=== PATIENT | female | born 1945 | race Two or more races ===

== ENCOUNTER 2023-03-09 01:54 | Inpatient (IN) | payer OTHER ==
[2023-03-09] VITALS (7 sets, daily range): BP systolic 103–152; BP diastolic 56–98; PULSE 56–100; RESP 12–18; TEMP 98.1–98.6; O2SAT 95–97
[~2023-03-09] VITALS: Ht 162.6 cm; Wt 51.6 kg
[2023-03-09] MEDS ORDERED: MORPHINE SULFATE INJ 2 MG/ml SYRG IV PRN (04:45)
[2023-03-09] MEDS ORDERED: SODIUM CHLORIDE 0.9% 1,000 ML IV ONE (04:45)
[2023-03-09] MEDS ORDERED: ACETAMINOPHEN 325 MG TAB PO PRN (04:45)
[2023-03-09] MEDS ORDERED: NITROGLYCERIN 0.4 MG SL TAB SL PRN (04:45)
[2023-03-09] MEDS ORDERED: ONDANSETRON HCL 4 MG/2 ML VIAL IV PRN (04:45)
[2023-03-09] MEDS ORDERED: ATOR-47 PO (05:24)
[2023-03-09] MEDS ORDERED: HYDR12.55 PO (05:24)
[2023-03-09] MEDS ORDERED: LEVO150T10 PO (05:24)
[2023-03-09] MEDS ORDERED: AMLO1TAB23 PO (05:24)
[2023-03-09 08:10] LABS: Basophils # (auto) 0 10 ^3/uL (0-0.2); Basophils % (auto) 0.8 % (0.0-2.0); Eosinophils # (auto) 0.2 10 ^3/uL (0-0.8); Eosinophils % (auto) 3.2 % (0.0-7.0); Hematocrit 36.9 % (36.0-46.0); Hemoglobin 12.8 g/dL (12.2-16.2); Lymphocytes # (auto) 1.6 10 ^3/uL (0.4-5.4); Lymphocytes % (auto) 26.1 % (10.0-50.0); Mean Corpuscular Hemoglobin 31.4 pg (28.0-32.0); Mean Corpuscular Hgb Conc. 34.6 g/dL (32.0-36.0); Mean Corpuscular Volume 90.8 fL (80.0-100.0); Monocytes # (auto) 0.4 10 ^3/uL (0-1.3); Monocytes % (auto) 6.7 % (0.0-12.0); Neutrophils # (auto) 3.8 10 ^3/uL (1.6-8.6); Neutrophils % (auto) 63.2 % (37.0-80.0); Nucleated Red Blood Cells % 0.1 %; Red Blood Cells 4.06 10^6/uL (4.0-5.20); Red Cell Distribution Width 13.9 % (11.8-14.3)
[2023-03-09] MEDS: ASPirin 81 mg TAB PO SCH (09:09)
[2023-03-09 09:20] LABS: BUN/Creatinine Ratio 21.1 (10.0-20.0); Calcium 8.8 mg/dL (8.5-10.1); Potassium 3.3 mmol/L (3.5-5.1)
[2023-03-09] MEDS ORDERED: amLODIPine BESYLATE 5 MG TAB PO ONE (13:30)
[2023-03-09 14:04] LABS: Cholesterol 187 mg/dL (< 200); Triglycerides 167 mg/dL (< 150)
[2023-03-09 14:09] LABS: HDL Cholesterol 64 mg/dL (40-59); LDL Cholesterol 98 mg/dL (< 100)
[2023-03-09] MEDS ORDERED: LEVOTHYROXINE SODIUM 100 MCG/5 ML INJ IV ONE (17:45)
[2023-03-09] MEDS ORDERED: POTASSIUM CHL 20 Meq TABLET PO ONE (17:45)
[2023-03-09] MEDS: ATORVASTATIN 20 MG TAB PO SCH (21:54)
[2023-03-10 05:00] VITALS: BP 116/59; PULSE 59; RESP 17; TEMP 97.4; O2SAT 91
[2023-03-10 06:55] LABS: BUN/Creatinine Ratio 18.3 (10.0-20.0); Calcium 8.5 mg/dL (8.5-10.1); Potassium 3.5 mmol/L (3.5-5.1)
[2023-03-10 08:00] VITALS: BP 122/65; PULSE 55; PULSE 66; RESP 18; TEMP 98.2; O2SAT 97
[2023-03-10 09:03] LABS: Free T4 (Free Thyroxine) 0.17 ng/dL (0.89-1.76)
[2023-03-10 09:04] LABS: Free T3 0.76 pg/mL (2.3-4.2)
[2023-03-10] MEDS: ASPirin 81 mg TAB PO SCH (09:37)
[2023-03-10] MEDS: amLODIPine BESYLATE 5 MG TAB PO SCH (09:38)
[2023-03-10] MEDS: LEVOTHYROXINE SODIUM 100 MCG/5 ML INJ IV SCH (09:38)
[2023-03-10 13:00] VITALS: BP 135/52; PULSE 65; RESP 18; TEMP 98; O2SAT 95
[2023-03-10 17:00] VITALS: BP 131/66; PULSE 67; RESP 17; TEMP 97.9; O2SAT 98
[2023-03-10 20:00] VITALS: BP 122/65; PULSE 66; PULSE 71; RESP 18; TEMP 98.2; O2SAT 97
[2023-03-10] MEDS: ATORVASTATIN 20 MG TAB PO SCH (21:12)
[2023-03-10 22:00] VITALS: BP 141/65; PULSE 66; RESP 18; TEMP 97.7; O2SAT 97
[2023-03-11 05:00] VITALS: BP 121/56; PULSE 54; RESP 17; TEMP 97.4; O2SAT 98
[2023-03-11 06:08] LABS: BUN/Creatinine Ratio 27.5 (10.0-20.0); Calcium 8.4 mg/dL (8.7-10.4); Potassium 4.1 mmol/L (3.5-5.1)
[2023-03-11 08:00] VITALS: BP 120/64; PULSE 52; PULSE 59; RESP 15; TEMP 97.2; O2SAT 94
[2023-03-11] MEDS ORDERED: ADENOSINE 43 MG in GIVE UN-DILUTED 0 ML IV STA (08:58)
[2023-03-11 09:00] VITALS: BP 120/64; PULSE 59; RESP 15; TEMP 97.2; O2SAT 94
[2023-03-11] MEDS: LEVOTHYROXINE SODIUM 100 MCG/5 ML INJ IV SCH (12:42)
[2023-03-11] MEDS: ASPirin 81 mg TAB PO SCH (12:42)
[2023-03-11] MEDS: amLODIPine BESYLATE 5 MG TAB PO SCH (12:44)
[2023-03-11 13:00] VITALS: BP 141/75; PULSE 82; RESP 16; TEMP 97.3; O2SAT 97
[2023-03-11] MEDS ORDERED: ASPI-325 PO (13:07)
[2023-03-11] MEDS ORDERED: PANT40T PO (13:09)
[2023-03-11 15:41] VITALS: BP 141/75; PULSE 59; RESP 15; TEMP 97.2; O2SAT 94
[2023-03-11 17:00] VITALS: BP 129/62; PULSE 75; RESP 16; TEMP 97.6; O2SAT 98
== END 2023-03-11 17:49 | disposition home health service (06) | DRG 204 ==
LOC: CENTRAL 04:14 → TELE-CENTR 05:08
PROVIDERS: ADMIT Nurse Practitioner Family; ATTEND Hospitalist
DX: R07.81 Pleurodynia (principal); E87.6 Hypokalemia; E78.5 Hyperlipidemia, unspecified; E03.9 Hypothyroidism, unspecified; I10 Essential (primary) hypertension; H53.8 Other visual disturbances
CPT/HCPCS: 36415; 70551; 78452; 80048; 80061; 84439; 84443; 84481; 84484; 85025; 93005; 93017; 93306; 97116; 97163; 97530; G0378; J0153; J3490

== ENCOUNTER 2023-03-16 13:28 | Observation (INO) | payer OTHER ==
[~2023-03-16] VITALS: Ht 170.2 cm; Wt 58.6 kg
[~2023-03-16 13:28] MED LIST: AMLO1TAB23 PO; ASPI-325 PO; ATOR-47 PO; LEVO150T10 PO; PANT40T PO
[2023-03-16 14:21] LABS: Basophils # (auto) 0.1 10 ^3/uL (0-0.2); Basophils % (auto) 0.9 % (0.0-2.0); Eosinophils # (auto) 0.2 10 ^3/uL (0-0.8); Eosinophils % (auto) 1.9 % (0.0-7.0); Hematocrit 35.9 % (36.0-46.0); Hemoglobin 12.5 g/dL (12.2-16.2); Lymphocytes # (auto) 1.8 10 ^3/uL (0.4-5.4); Lymphocytes % (auto) 21.7 % (10.0-50.0); Mean Corpuscular Hemoglobin 32.1 pg (28.0-32.0); Mean Corpuscular Hgb Conc. 34.7 g/dL (32.0-36.0); Mean Corpuscular Volume 92.5 fL (80.0-100.0); Monocytes # (auto) 0.5 10 ^3/uL (0-1.3); Monocytes % (auto) 5.8 % (0.0-12.0); Neutrophils # (auto) 5.8 10 ^3/uL (1.6-8.6); Neutrophils % (auto) 69.7 % (37.0-80.0); Red Blood Cells 3.89 10^6/uL (4.0-5.20); Red Cell Distribution Width 14.3 % (11.8-14.3); White Blood Cell 8.3 10^3/uL (4.4-10.8)
[2023-03-16] MEDS ORDERED: ASPirin 325 MG TAB PO ONE (14:30)
[2023-03-16 14:38] LABS: Alanine Aminotransferase 19 U/L (7-40); Albumin 4.4 g/dL (3.2-4.8); Alkaline Phosphatase 136 U/L (46-116); Anion Gap 7.6 (5-15); Aspartate Aminotransferase 10 U/L (13-40); BUN/Creatinine Ratio 19.5 (10.0-20.0); Bilirubin, Total 0.9 mg/dL (0.2-1.0); Blood Urea Nitrogen 17 mg/dL (9-23); Calcium 9.4 mg/dL (8.7-10.4); Carbon Dioxide 24.4 mmol/L (20-30); Chloride 107 mmol/L (98-107); Glucose 92 mg/dL (74-106); Potassium 3.3 mmol/L (3.5-5.1); Sodium 139 mmol/L (136-145); Total Protein 6.9 g/dL (5.7-8.2)
[2023-03-16 14:42] VITALS: PULSE 68
[2023-03-16 16:33] LABS: Urine Bacteria NONE SEEN /hpf (None Seen); Urine Blood Negative /uL (Negative); Urine Clarity Clear (Clear); Urine Color Colorless (Yellow); Urine Protein, UAD Negative (Negative); Urine Specific Gravity 1.006 (1.001-1.035); Urine Urobilinogen Normal (Negative); Urine WBC 6 /hpf (0 - 5); Urine pH 7.5 (5.0-8.0)
[2023-03-16] MEDS ORDERED: NITROGLYCERIN 0.4 MG SL TAB SL PRN (18:15)
[2023-03-16] MEDS ORDERED: ACETAMINOPHEN 325 MG TAB PO PRN (18:15)
[2023-03-16] MEDS ORDERED: ONDANSETRON HCL 4 MG/2 ML VIAL IV PRN (18:15)
[2023-03-16] MEDS ORDERED: HYDROcodone-ACET 5/325MG TAB PO PRN (18:15)
[2023-03-16] MEDS ORDERED: MORPHINE SULFATE INJ 2 MG/ml SYRG IV PRN ×2 (18:15)
[2023-03-16] MEDS: SODIUM CHLORIDE 0.9% 1,000 ML IV SCH (18:30)
[2023-03-16 19:30] VITALS: PULSE 58; RESP 18; O2SAT 98
[2023-03-16] MEDS ORDERED: TEMAZEPAM 15 MG CAP PO ONE (22:45)
[2023-03-17] VITALS (10 sets, daily range): BP systolic 128–166; BP diastolic 52–81; PULSE 58–74; RESP 17–21; TEMP 36.5; O2SAT 97–99
[2023-03-17] MEDS ORDERED: POTASSIUM CHL 20MEQ/100ML 100 ML IV ONE (04:15)
[2023-03-17] MEDS ORDERED: LOS25T PO (08:25)
[2023-03-17] MEDS ORDERED: LEVO100T8 PO (08:27)
[2023-03-17] MEDS: ENOXAPARIN SOD 40 MG/0.4 ML SYRINGE SC SCH (09:14)
[2023-03-17 10:12] LABS: Chloride 107 mmol/L (98-107); Potassium 3.5 mmol/L (3.5-5.1); Sodium 139 mmol/L (136-145)
[2023-03-17 10:18] LABS: BUN/Creatinine Ratio 14.8 (10.0-20.0); Blood Urea Nitrogen 12 mg/dL (9-23); Glucose 150 mg/dL (74-106)
[2023-03-17 10:19] LABS: Magnesium 1.9 mg/dL (1.6-2.6)
[2023-03-17] MEDS ORDERED: IOHEXOL 350 MG/ML 100ML IJ ONE (11:11)
[2023-03-17] MEDS ORDERED: ALBUAER3 IN (13:39)
[2023-03-17] MEDS: SODIUM CHLORIDE 0.9% 1,000 ML IV SCH (17:41)
[2023-03-17] MEDS ORDERED: MELATONIN 5 MG TAB PO SCH (22:00)
[2023-03-18] MEDS: SODIUM CHLORIDE 0.9% 1,000 ML IV SCH (03:36)
[2023-03-18 05:00] VITALS: BP 147/55; PULSE 58; RESP 18; TEMP 97.7; O2SAT 99
[2023-03-18 08:00] VITALS: BP 134/63; PULSE 53; PULSE 58; PULSE 73; RESP 16; RESP 20; TEMP 97.5; O2SAT 97; O2SAT 98
[2023-03-18] MEDS: ENOXAPARIN SOD 40 MG/0.4 ML SYRINGE SC SCH (09:39)
[2023-03-18 12:00] VITALS: BP 122/56; PULSE 54; RESP 20; TEMP 99.1; O2SAT 99
== END 2023-03-18 15:30 | disposition home or self-care (01) ==
LOC: ER 13:28 → TELE 18:11 → TELE-EAST 03-17 06:30
PROVIDERS: ADMIT Internal Medicine; ATTEND Internal Medicine
DX: R07.89 Other chest pain (principal); J43.2 Centrilobular emphysema; E87.6 Hypokalemia; E78.5 Hyperlipidemia, unspecified; E03.9 Hypothyroidism, unspecified; I10 Essential (primary) hypertension; F41.9 Anxiety disorder, unspecified; R79.89 Other specified abnormal findings of blood chemistry; Z79.899 Other long term (current) drug therapy
CPT/HCPCS: 36415; 71045; 71275; 80048; 80053; 81001; 82962; 83735; 83880; 84484; 85025; 85379; 93005; 96361; 96365; 96366; 97110; 97116; 97163; 97530; 99285; G0378; J1650; J3480; J7030; Q9967

== ENCOUNTER 2023-03-26 11:43 | Emergency (ER) | payer OTHER ==
[~2023-03-26] VITALS: Ht 170.2 cm; Wt 51.0 kg
[~2023-03-26 11:43] MED LIST changes: +ALBUAER3 IN; +LEVO100T8 PO; +LOS25T PO
[2023-03-26 14:02] VITALS: BP 137/57; PULSE 78; RESP 16; TEMP 98; O2SAT 98
[2023-03-26] MEDS ORDERED: CEPH500C PO (14:50)
[2023-04-01] MEDS ORDERED: CEPH500C PO (13:33)
[2023-04-01] MEDS ORDERED: IPR002IS NEB (13:33)
[2023-04-01] MEDS ORDERED: METH4PAK PO (13:33)
[2023-04-01] MEDS ORDERED: NEBU1MIS48 XX (13:33)
[2023-04-01] MEDS ORDERED: ALB5IS NEB (13:33)
== END 2023-03-26 14:47 | disposition home or self-care (01) ==
LOC: ER 11:43
DX: B35.1 Tinea unguium (principal); I10 Essential (primary) hypertension

== ENCOUNTER 2023-03-30 19:10 | Inpatient (IN) | payer OTHER ==
[~2023-03-30] VITALS: Ht 170.2 cm; Wt 53.5 kg
[~2023-03-30 19:10] MED LIST changes: +CEPH500C PO
[2023-03-30 19:45] LABS: Basophils # (auto) 0.1 10 ^3/uL (0-0.2); Basophils % (auto) 1.1 % (0.0-2.0); Eosinophils # (auto) 0.2 10 ^3/uL (0-0.8); Eosinophils % (auto) 3.1 % (0.0-7.0); Hematocrit 34.9 % (36.0-46.0); Hemoglobin 12.2 g/dL (12.2-16.2); Lymphocytes % (auto) 29.6 % (10.0-50.0); Mean Corpuscular Hemoglobin 32.6 pg (28.0-32.0); Mean Corpuscular Hgb Conc. 34.9 g/dL (32.0-36.0); Mean Corpuscular Volume 93.4 fL (80.0-100.0); Monocytes # (auto) 0.4 10 ^3/uL (0-1.3); Neutrophils # (auto) 4.1 10 ^3/uL (1.6-8.6); Neutrophils % (auto) 60.2 % (37.0-80.0); Red Blood Cells 3.73 10^6/uL (4.0-5.20); Red Cell Distribution Width 14.8 % (11.8-14.3); White Blood Cell 6.8 10^3/uL (4.4-10.8)
[2023-03-30 20:04] LABS: Alanine Aminotransferase 16 U/L (7-40); Albumin 4.5 g/dL (3.2-4.8); Alkaline Phosphatase 168 U/L (46-116); Anion Gap 6.8 (5-15); Aspartate Aminotransferase 14 U/L (13-40); BUN/Creatinine Ratio 16.9 (10.0-20.0); Blood Urea Nitrogen 15 mg/dL (9-23); Calcium 9.5 mg/dL (8.7-10.4); Carbon Dioxide 27.2 mmol/L (20-30); Chloride 106 mmol/L (98-107); Glucose 100 mg/dL (74-106); Potassium 3.2 mmol/L (3.5-5.1); Sodium 140 mmol/L (136-145)
[2023-03-30 20:05] LABS: Bilirubin, Total 0.6 mg/dL (0.2-1.0); Total Protein 7.1 g/dL (5.7-8.2)
[2023-03-30 20:14] LABS: INR 1.04 (0.9-1.15); Partial Thromboplastin Time 29.1 SEC (24.5-34.5); Prothrombin Time 10.9 sec (9.3-11.8)
[2023-03-30] MEDS ORDERED: ALBUTEROL SULF 2.5 MG/0.5ML(0.5%) NEB SOLN HHN ONE (20:45)
[2023-03-30] MEDS ORDERED: AZITHROMYCIN 500MG/ 250ML 250 ML IV ONE (20:45)
[2023-03-30] MEDS ORDERED: ONDANSETRON HCL 4 MG/2 ML VIAL IV ONE (20:45)
[2023-03-30] MEDS ORDERED: PANTOPRAZOLE 40 MG/10 ML VIAL INJ IV ONE (20:45)
[2023-03-30] MEDS ORDERED: POTASSIUM CHL 20 Meq TABLET PO ONE (20:45)
[2023-03-30] MEDS ORDERED: ACETAMINOPHEN 325 MG TAB PO PRN (20:45)
[2023-03-30] MEDS ORDERED: cefTRIAXone 1GM/50ML D5W 50 ML IV ONE (20:45)
[2023-03-30] MEDS ORDERED: IPRATROPIUM BROM 0.5 MG/2.5ML INH SOL HHN ONE (20:45)
[2023-03-30] MEDS ORDERED: SODIUM CHLORIDE 0.9% 1,450 ML IV ONE (20:45)
[2023-03-30] MEDS ORDERED: methylPREDNISolone SOD SUCC 40 MG/ML VL IV ONE (20:45)
[2023-03-30] MEDS ORDERED: ASPirin 81 mg TAB PO ONE (20:45)
[2023-03-30] MEDS ORDERED: LORazepam 2MG/ML-1ML VIAL IV ONE (20:45)
[2023-03-30] MEDS ORDERED: IOHEXOL 350 MG/ML 100ML IJ ONE (21:59)
[2023-03-30 22:33] LABS: Urine Bacteria NONE SEEN /hpf (None Seen); Urine Blood Negative /uL (Negative); Urine Clarity Clear (Clear); Urine Color Colorless (Yellow); Urine Protein, UAD Negative (Negative); Urine Specific Gravity 1.015 (1.001-1.035); Urine Urobilinogen Normal (Negative); Urine WBC 22 /hpf (0 - 5)
[2023-03-30 23:00] VITALS: PULSE 62; RESP 16; O2SAT 98
[2023-03-31] VITALS (15 sets, daily range): BP systolic 119–140; BP diastolic 54–64; PULSE 54–81; RESP 14–18; TEMP 96.8–98.3; O2SAT 96–100
[2023-03-31 00:16] LABS: INR 1.05 (0.9-1.15); Partial Thromboplastin Time 29.6 SEC (24.5-34.5)
[2023-03-31] MEDS ORDERED: TEMAZEPAM 15 MG CAP PO ONE ×2 (01:00→21:00)
[2023-03-31] MEDS ORDERED: ACETAMINOPHEN 325 MG TAB PO PRN (01:45)
[2023-03-31] MEDS ORDERED: hydrALAZINE HCL 20 MG/ML VL IV PRN (01:45)
[2023-03-31] MEDS ORDERED: DOCUSATE SOD 100 MG CAP PO PRN (01:45)
[2023-03-31] MEDS ORDERED: MORPHINE SULFATE INJ 2 MG/ml SYRG IV PRN (01:45)
[2023-03-31] MEDS ORDERED: NITROGLYCERIN 0.4 MG SL TAB SL PRN (01:45)
[2023-03-31 06:07] LABS: Basophils # (auto) 0 10 ^3/uL (0-0.2); Basophils % (auto) 0.1 % (0.0-2.0); Chloride 111 mmol/L (98-107); Eosinophils # (auto) 0 10 ^3/uL (0-0.8); Hematocrit 31.3 % (36.0-46.0); Hemoglobin 10.7 g/dL (12.2-16.2); Lymphocytes # (auto) 0.3 10 ^3/uL (0.4-5.4); Lymphocytes % (auto) 4.2 % (10.0-50.0); Mean Corpuscular Hemoglobin 31.9 pg (28.0-32.0); Mean Corpuscular Hgb Conc. 34.1 g/dL (32.0-36.0); Mean Corpuscular Volume 93.7 fL (80.0-100.0); Monocytes # (auto) 0.1 10 ^3/uL (0-1.3); Monocytes % (auto) 1.3 % (0.0-12.0); Neutrophils # (auto) 5.7 10 ^3/uL (1.6-8.6); Neutrophils % (auto) 94.4 % (37.0-80.0); Potassium 3.8 mmol/L (3.5-5.1); Red Blood Cells 3.34 10^6/uL (4.0-5.20); Red Cell Distribution Width 14.8 % (11.8-14.3); Sodium 142 mmol/L (136-145)
[2023-03-31 06:08] LABS: Anion Gap 8.6 (5-15); Carbon Dioxide 22.4 mmol/L (20-30)
[2023-03-31 06:09] LABS: Calcium 8.8 mg/dL (8.7-10.4)
[2023-03-31 06:14] LABS: Blood Urea Nitrogen 17 mg/dL (9-23); Glucose 167 mg/dL (74-106)
[2023-03-31] MEDS: ALBUTEROL SULF 2.5 MG/0.5ML(0.5%) NEB SOLN NEB SCH ×4 (06:37→22:25)
[2023-03-31] MEDS: IPRATROPIUM BROM 0.5 MG/2.5ML INH SOL NEB SCH ×4 (06:37→22:25)
[2023-03-31] MEDS: PANTOPRAZOLE 40 MG/10 ML VIAL INJ IV SCH (08:14)
[2023-03-31] MEDS: cefTRIAXone 1GM/50ML D5W 50 ML IV SCH (08:15)
[2023-03-31] MEDS: ATORVASTATIN 20 MG TAB PO SCH (08:16)
[2023-03-31] MEDS: ENOXAPARIN SOD 40 MG/0.4 ML SYRINGE SC SCH (08:16)
[2023-03-31] MEDS: amLODIPine BESYLATE 5 MG TAB PO SCH (08:16)
[2023-03-31] MEDS: LEVOTHYROXINE SODIUM 100 MCG TAB PO SCH (08:16)
[2023-03-31] MEDS: ASPirin-EC 81 mg tab PO SCH (08:16)
[2023-03-31] MEDS: SODIUM CHLORIDE 0.9% 500 ML IV SCH ×2 (08:17→09:30)
[2023-03-31] MEDS ORDERED: NITROGLYCERIN 0.4 MG SL TAB SL ONE (10:00)
[2023-03-31 13:45] LABS: Hepatitis B Surface Antigen Negative (Negative)
[2023-03-31 14:06] LABS: Hepatitis C Antibody Negative (Negative)
[2023-03-31] MEDS: methylPREDNISolone SOD SUCC 40 MG/ML VL IV SCH ×2 (17:17→22:23)
[2023-04-01] VITALS (10 sets, daily range): BP systolic 123–128; BP diastolic 54–76; PULSE 60–77; RESP 16–18; TEMP 97.7–98.2; O2SAT 95–100
[2023-04-01] MEDS ORDERED: PNEUMOCOCCAL VACC POLYS 25 MCG/0.5 ML VIAL IM ONE (02:45)
[2023-04-01] MEDS: methylPREDNISolone SOD SUCC 40 MG/ML VL IV SCH ×2 (05:42→14:31)
[2023-04-01] MEDS: ALBUTEROL SULF 2.5 MG/0.5ML(0.5%) NEB SOLN NEB SCH ×3 (07:36→14:19)
[2023-04-01] MEDS: IPRATROPIUM BROM 0.5 MG/2.5ML INH SOL NEB SCH ×3 (07:36→14:19)
[2023-04-01 07:38] LABS: Basophils # (auto) 0 10 ^3/uL (0-0.2); Eosinophils # (auto) 0 10 ^3/uL (0-0.8); Hematocrit 31.9 % (36.0-46.0); Lymphocytes # (auto) 0.5 10 ^3/uL (0.4-5.4); Lymphocytes % (auto) 5.1 % (10.0-50.0); Mean Corpuscular Hemoglobin 32.3 pg (28.0-32.0); Mean Corpuscular Hgb Conc. 34.3 g/dL (32.0-36.0); Mean Corpuscular Volume 94.2 fL (80.0-100.0); Monocytes # (auto) 0.3 10 ^3/uL (0-1.3); Monocytes % (auto) 3.1 % (0.0-12.0); Neutrophils # (auto) 9.5 10 ^3/uL (1.6-8.6); Neutrophils % (auto) 91.8 % (37.0-80.0); Red Blood Cells 3.39 10^6/uL (4.0-5.20); Red Cell Distribution Width 14.7 % (11.8-14.3); White Blood Cell 10.3 10^3/uL (4.4-10.8)
[2023-04-01 07:58] LABS: Chloride 108 mmol/L (98-107); Potassium 4.3 mmol/L (3.5-5.1); Sodium 141 mmol/L (136-145)
[2023-04-01 07:59] LABS: Anion Gap 8.9 (5-15); Calcium 9.2 mg/dL (8.5-10.1); Carbon Dioxide 24.1 mmol/L (20-30)
[2023-04-01 08:04] LABS: BUN/Creatinine Ratio 24.5 (10.0-20.0); Blood Urea Nitrogen 26 mg/dL (9-23); Glucose 144 mg/dL (74-106)
[2023-04-01] MEDS: LEVOTHYROXINE SODIUM 100 MCG TAB PO SCH (09:57)
[2023-04-01] MEDS: ENOXAPARIN SOD 40 MG/0.4 ML SYRINGE SC SCH (09:57)
[2023-04-01] MEDS: ASPirin-EC 81 mg tab PO SCH (09:57)
[2023-04-01] MEDS: cefTRIAXone 1GM/50ML D5W 50 ML IV SCH (09:58)
[2023-04-01] MEDS: ATORVASTATIN 20 MG TAB PO SCH (09:59)
[2023-04-01] MEDS: amLODIPine BESYLATE 5 MG TAB PO SCH (10:19)
[2023-04-01] MEDS: PANTOPRAZOLE 40 MG/10 ML VIAL INJ IV SCH (10:21)
[2023-04-01] MEDS ORDERED: METH4PAK PO ×2 (13:33)
[2023-04-01] MEDS ORDERED: ALB5IS NEB ×2 (13:33)
[2023-04-01] MEDS ORDERED: IPR002IS NEB ×2 (13:33)
[2023-04-01] MEDS ORDERED: CEPH500C PO ×2 (13:33)
[2023-04-01] MEDS ORDERED: NEBU1MIS48 XX ×2 (13:33)
[2023-04-01] MEDS ORDERED: PNEUMOCOCCAL VACC POLYS 25 MCG/0.5 ML Syringe IM ONE (16:30)
== END 2023-04-01 17:30 | disposition home health service (06) | DRG 190 ==
LOC: ER 19:14 → TELE 03-31 01:55 → TELE-CENTR 03-31 10:00
PROVIDERS: ADMIT Nurse Practitioner Family; ATTEND Internal Medicine
DX: J43.9 Emphysema, unspecified (principal); I21.9 Acute myocardial infarction, unspecified; F03.A4 Unspecified dementia, mild, with anxiety; N39.0 Urinary tract infection, site not specified; E03.9 Hypothyroidism, unspecified; E78.5 Hyperlipidemia, unspecified; I10 Essential (primary) hypertension
CPT/HCPCS: 36415; 71045; 71275; 80048; 80053; 81001; 83605; 83735; 83880; 84443; 84484; 85025; 85379; 85610; 85730; 86803; 86850; 86900; 86901; 87040; 87081; 87086; 87340; 93005; 94640; 96365; 97110; 97116; 97163; 97530; 99291; C9113; G0378; J0696

== ENCOUNTER 2023-04-02 19:49 | Emergency (ER) | payer OTHER ==
[~2023-04-02] VITALS: Ht 170.2 cm; Wt 52.8 kg
[~2023-04-02 19:49] MED LIST changes: +ALB5IS NEB; +IPR002IS NEB; -LEVO100T8 PO; +METH4PAK PO; +NEBU1MIS48 XX
[2023-04-02 21:57] LABS: Basophils # (auto) 0 10 ^3/uL (0-0.2); Basophils % (auto) 0.1 % (0.0-2.0); Eosinophils # (auto) 0 10 ^3/uL (0-0.8); Eosinophils % (auto) 0.2 % (0.0-7.0); Hematocrit 34.1 % (36.0-46.0); Hemoglobin 11.7 g/dL (12.2-16.2); Lymphocytes # (auto) 1.9 10 ^3/uL (0.4-5.4); Lymphocytes % (auto) 15.4 % (10.0-50.0); Mean Corpuscular Hemoglobin 32.4 pg (28.0-32.0); Mean Corpuscular Hgb Conc. 34.3 g/dL (32.0-36.0); Mean Corpuscular Volume 94.7 fL (80.0-100.0); Monocytes # (auto) 0.8 10 ^3/uL (0-1.3); Monocytes % (auto) 6.8 % (0.0-12.0); Neutrophils # (auto) 9.5 10 ^3/uL (1.6-8.6); Neutrophils % (auto) 77.5 % (37.0-80.0); Red Blood Cells 3.61 10^6/uL (4.0-5.20); Red Cell Distribution Width 14.8 % (11.8-14.3); White Blood Cell 12.3 10^3/uL (4.4-10.8)
[2023-04-02 22:06] LABS: Alanine Aminotransferase 38 U/L (7-40); Albumin 4.4 g/dL (3.2-4.8); Alkaline Phosphatase 129 U/L (46-116); Anion Gap 7 (5-15); Aspartate Aminotransferase 36 U/L (13-40); BUN/Creatinine Ratio 30.6 (10.0-20.0); Bilirubin, Total 0.4 mg/dL (0.2-1.0); Blood Urea Nitrogen 30 mg/dL (9-23); Calcium 9.3 mg/dL (8.7-10.4); Carbon Dioxide 26 mmol/L (20-30); Chloride 106 mmol/L (98-107); Glucose 100 mg/dL (74-106); Potassium 3.6 mmol/L (3.5-5.1); Sodium 139 mmol/L (136-145); Total Protein 6.9 g/dL (5.7-8.2)
[2023-04-03] MEDS ORDERED: IPRATROPIUM BROM 0.5 MG/2.5ML INH SOL ONE (00:06)
[2023-04-03] MEDS ORDERED: ALBUTEROL SULF 2.5 MG/0.5ML(0.5%) NEB SOLN ONE (00:06)
[2023-04-03 01:56] LABS: Rapid Influenza A Negative (Negative); Rapid Influenza B Negative (Negative)
[2023-04-03 01:57] LABS: COVID19 ANTIGEN SOFIA FIA NEGATIVE (NEGATIVE)
[2023-04-03] MEDS ORDERED: cefTRIAXone 1GM/50ML D5W 50 ML IV ONE (02:15)
[2023-04-03] MEDS ORDERED: AZITHROMYCIN 500MG/ 250ML 250 ML IV ONE (02:15)
[2023-04-03 03:01] VITALS: PULSE 59; RESP 9; TEMP 97.7; O2SAT 100
[2023-04-03] MEDS ORDERED: LACTATED RINGER'S 1,000 ML IV ONE (05:15)
[2023-04-03 07:55] VITALS: PULSE 59; RESP 16; O2SAT 96
[2023-04-03 08:06] LABS: Urine Bacteria NONE SEEN /hpf (None Seen); Urine Blood Negative /uL (Negative); Urine Clarity Clear (Clear); Urine Color Colorless (Yellow); Urine Protein, UAD Negative (Negative); Urine Urobilinogen Normal (Negative); Urine WBC 13 /hpf (0 - 5); Urine pH 6.5 (5.0-8.0)
[2023-04-03 16:00] VITALS: BP 138/60; PULSE 67; RESP 16; O2SAT 97
== END 2023-04-03 17:13 | disposition home or self-care (01) ==
LOC: ER 19:50
DX: J06.9 Acute upper respiratory infection, unspecified (principal); R06.02 Shortness of breath; D72.829 Elevated white blood cell count, unspecified; R53.1 Weakness; E86.0 Dehydration; R29.6 Repeated falls; R79.89 Other specified abnormal findings of blood chemistry; I10 Essential (primary) hypertension; E78.5 Hyperlipidemia, unspecified; Z20.822 Contact with and (suspected) exposure to COVID-19
CPT/HCPCS: 36415; 71045; 80053; 81001; 83880; 84484; 85025; 87426; 87804; 93005; 94640; 96365; 96366; 96368; 97163; 99285; J0456; J0696; J7644

== ENCOUNTER 2023-04-09 15:11 | Emergency (ER) | payer OTHER ==
[~2023-04-09] VITALS: Ht 170.2 cm; Wt 51.1 kg
[~2023-04-09 15:11] MED LIST changes: +LEVO100T8 PO
[2023-04-09] MEDS ORDERED: DexAMETHasone SOD PHOS 10MG/1ML VIAL INJ IM ONE (16:00)
[2023-04-09 16:02] LABS: Basophils # (auto) 0.1 10 ^3/uL (0-0.2); Basophils % (auto) 0.8 % (0.0-2.0); Eosinophils # (auto) 0 10 ^3/uL (0-0.8); Eosinophils % (auto) 0.2 % (0.0-7.0); Hematocrit 33.8 % (36.0-46.0); Hemoglobin 11.7 g/dL (12.2-16.2); Lymphocytes % (auto) 25.9 % (10.0-50.0); Mean Corpuscular Hemoglobin 32.6 pg (28.0-32.0); Mean Corpuscular Hgb Conc. 34.6 g/dL (32.0-36.0); Mean Corpuscular Volume 94.2 fL (80.0-100.0); Monocytes % (auto) 8.7 % (0.0-12.0); Neutrophils # (auto) 7.3 10 ^3/uL (1.6-8.6); Neutrophils % (auto) 64.4 % (37.0-80.0); Red Blood Cells 3.59 10^6/uL (4.0-5.20); Red Cell Distribution Width 14.4 % (11.8-14.3); White Blood Cell 11.4 10^3/uL (4.4-10.8)
[2023-04-09 16:18] LABS: Alanine Aminotransferase 39 U/L (7-40); Alkaline Phosphatase 127 U/L (46-116); Anion Gap 7 (5-15); BUN/Creatinine Ratio 25.5 (10.0-20.0); Blood Urea Nitrogen 26 mg/dL (9-23); Calcium 9.5 mg/dL (8.7-10.4); Carbon Dioxide 25 mmol/L (20-30); Chloride 108 mmol/L (98-107); Glucose 94 mg/dL (74-106); Potassium 3.3 mmol/L (3.5-5.1); Sodium 140 mmol/L (136-145)
[2023-04-09 16:19] LABS: Albumin 4.9 g/dL (3.2-4.8); Aspartate Aminotransferase 27 U/L (13-40); Bilirubin, Total 0.6 mg/dL (0.2-1.0); Total Protein 6.8 g/dL (5.7-8.2)
[2023-04-09 18:28] VITALS: BP 110/72; PULSE 69; RESP 19; O2SAT 95
== END 2023-04-09 18:06 | disposition home or self-care (01) ==
LOC: ER 15:11
DX: R06.02 Shortness of breath (principal); I10 Essential (primary) hypertension; E78.5 Hyperlipidemia, unspecified; F03.90 Unspecified dementia, unspecified severity, without behavioral disturbance, psychotic disturbance, mood disturbance, and anxiety; Z79.82 Long term (current) use of aspirin; Z79.899 Other long term (current) drug therapy
CPT/HCPCS: 36415; 71046; 80053; 84484; 85025; 85379; 93005; 96372; 99285; J1100

== ENCOUNTER 2024-05-19 11:26 | Inpatient (IN) | payer MEDICARE, MEDICAID ==
[~2024-05-19] VITALS: Ht 170.2 cm; Wt 54.5 kg
[~2024-05-19 11:26] MED LIST changes: -LEVO100T8 PO
[2024-05-19 12:24] LABS: Basophils # (auto) 0 10 ^3/uL (0-0.2); Basophils % (auto) 0.6 % (0.0-2.0); Eosinophils # (auto) 0.3 10 ^3/uL (0-0.8); Eosinophils % (auto) 3.3 % (0.0-7.0); Hematocrit 36.9 % (36.0-46.0); Hemoglobin 12.8 g/dL (12.2-16.2); Lymphocytes # (auto) 1.6 10 ^3/uL (0.4-5.4); Mean Corpuscular Hemoglobin 32.8 pg (28.0-32.0); Mean Corpuscular Hgb Conc. 34.6 g/dL (32.0-36.0); Mean Corpuscular Volume 94.8 fL (80.0-100.0); Monocytes # (auto) 0.5 10 ^3/uL (0-1.3); Monocytes % (auto) 6.5 % (0.0-12.0); Neutrophils # (auto) 5.5 10 ^3/uL (1.6-8.6); Neutrophils % (auto) 69.6 % (37.0-80.0); Platelet Count (auto) 227 10^3/uL (140-450); Red Cell Distribution Width 13.8 % (11.8-14.3); White Blood Cell 7.9 10^3/uL (4.4-10.8)
[2024-05-19 12:26] LABS: Chloride 108 mmol/L (98-107); Potassium 4.1 mmol/L (3.5-5.1); Sodium 141 mmol/L (136-145)
[2024-05-19 12:27] LABS: Anion Gap 8 (5-15); Carbon Dioxide 25 mmol/L (20-31)
[2024-05-19 12:28] LABS: Calcium 9.9 mg/dL (8.7-10.4)
[2024-05-19 12:32] LABS: Glucose 100 mg/dL (74-106)
[2024-05-19 12:33] LABS: BUN/Creatinine Ratio 13.3 (10.0-20.0); Blood Urea Nitrogen 12 mg/dL (9-23)
--- NOTE | 2024-05-19 12:56 | DVH ---
EXAM: CT HEAD WITHOUT CONTRAST HISTORY: fall COMPARISON: None TECHNIQUE: [Technique] Axial images were obtained and reformatted in coronal and sagittal planes. All CT scans at this medical facility are performed using dose modulation techniques as appropriate t o a performed exam including the following: Automated exposure control was utilized; adjustment of th e MA and/or KV according to patient size; and use of iterative reconstruction technique. CT Dose: CTDI volume is [CTDIvol] mGy. Dose-length product is [DLP] mGy*cm FINDINGS: There is scalp soft tissue swelling along the anterior frontal calvarium. The calvarium appears intac t. There is no evidence of acute intracranial hemorrhage, mass, mass effect midline shift. There is no h ydrocephalus or extra-axial fluid collection. Aviles-white matter differentiation is maintained.. There is mucosal thickening with retention cysts in the visualized left maxillary sinus. Remaining pa ranasal sinuses in the mastoid air cells are clear. IMPRESSION: 1. No acute intracranial process. 2. Anterior frontal scalp soft tissue swelling. HS:Y
--- NOTE | 2024-05-19 13:10 | DVH ---
Procedure: CT MAXILLOFACIAL WITHOUT Study Date and Requested Time: 05/19/2024 12:19 PM History:fall Comparison: None Dose: CTDI: 64.04 mGy DLP: 2382.85 mGycm Technique: Multiplanar images obtained through the face without intravenous contrast. Findings: Streak artifact from dental amalgam limits evaluation of the adjacent structures. Mild frontal scalp soft tissue edema / hematoma with overlying skin irregularity and associated foci of air. No underlyi ng fracture is visualized . Polypoid mucoperiosteal thickening of the left maxillary sinus and left posterior ethmoid air cell. The remainder of the paranasal sinuses and mastoids are clear. No evidence of acute traumatic fractures. Sclerotic focus of the anterior C7 vertebral body which ma y represent a bone island with a blastic lesion not excluded. Moderate to severe degenerative changes of the cervical spine. Lenses are not well-visualized. Question bilateral lens replacement. Otherwise, Orbits and globes g rossly unremarkable. There is minimal leftward deviation of the nasal septum with left-sided nasal s purring. Nasal cavity and visualized nasopharynx and oropharynx grossly unremarkable with no evidence of focal lesion. The thyroid gland is unremarkable. Biapical atelectasis/ scarring. Impression: No evidence of acute traumatic fractures. Mild right frontal scalp soft tissue edema / hematoma with associated foci of air and overlying wound .
[2024-05-19 13:50] LABS: Urine Bacteria None Seen /hpf (None Seen)
[2024-05-19 14:17] LABS: Urine Blood Negative /uL (Negative); Urine Clarity Clear (Clear); Urine Color Light-Yellow (Yellow); Urine Mucus FEW (None Seen); Urine Protein, UAD Negative (Negative); Urine Specific Gravity 1.012 (1.001-1.035); Urine Urobilinogen Normal (Negative); Urine WBC 8 /hpf (0 - 5); Urine pH 6.5 (5.0-9.0)
--- NOTE | 2024-05-19 14:28 | ED.PDOC ---
HPI (NEURO) HPI Comments Portions of this chart may have been created with an modal fluency direct voice recognition software. Occasional wrong-word or "sound-alike" substitutions may have occurred due to the inherent limitations of voice recognition software. Please read the chart carefully and recognize, using context, where these substitutions have occurred. This is a pleasant 78-year-old with hx of carotid endarterectomy, Hypertension, HTN, depression who was brought in by granddaughter for a mechanical fall that occurred today. Also reports she is seeing neurology at this time for behavioral changes. Her memory declined quickly, Not alert to year or place. Had recent MRI of brain and results were normal. Pending Pet scan ordered by neurology. Gets agitated at her facility. Granddaughter reports she hit her head on concrete after she stepped over a parking curb exiting the car. Fall was witnessed. Granddaughter denies LOC. Denies fever, chills, night sweats Denies persistent nausea Denies vomiting Denies thunderclap headache Denies photophobia, phonophobia Denies taking any blood thinner medication Denies vision/hearing changes Denies focal loss of strength/sensation or changes in speech Chief Complaint: Fall Injury Time Seen by MD: 11:45 Primary Care Provider: KETTY Reviewed Notes: Nurses Notes, Medications, Allergies Information Source: Patient Mode of Arrival: Wheelchair Past Medical History PAST MEDICAL HISTORY: Dementia, High Lipids, HTN Surgical History: Denies all surgeries MANAGER PROGRAM MANAGEMENT History: No Pertinent MANAGER PROGRAM MANAGEMENT History Family History Family History: Reviewed,noncontributory to illness Social History Smoker: Non-Smoker Alcohol: Denies ETOH Use Drugs: Denies Drug Use Lives In: Home All Other Systems: Reviewed and Negative (Per Hpi) Physical Exam General Appearance: No Apparent Distress, Normal HEENT: Head (Hematoma of the forehead. Bleeding controlled), Normal ENT Ins pection, Pharynx Normal, TMs Normal Neck: Full Range of Motion, Non-Tender, Normal, Normal Inspection Respiratory: Chest Non-Tender, Lungs Clear, No Accessory Muscle Use, No Respiratory Distress, Normal Breath Sounds Cardiovascular: No Edema, No JVD, No Murmur, No Gallop, Normal Peripheral Pulses, Regular Rate/Rhythm Breast Exam: Deferred Gastrointestinal: No Organomegaly, Non Tender, No Pulsatile Mass, Normal Bowel Sounds, Soft Genitalia: Deferred Pelvic: Deferred Rectal: Deferred Extremities: No calf tenderness, Normal capillary refill, Normal inspection, Normal range of motion, Non-tender, No pedal edema Musculoskeletal : Apperance: Normal Neurologic: Alert, medical support specialist II-XII nml as Tested, No Motor Deficits, Normal Affect, Normal Mood, No Sensory Deficits Cerebellar Function: Normal Reflexes: Normal Skin: Dry, Normal Color, Warm Lymphatic: No Adenopathy Was a procedure done? Was a procedure done?: No Differential Diagnosis (SZ) Headache: Closed Head Injury X-Ray, Labs, Meds, VS Vital Signs Date Time Temp Pulse Resp B/P (MAP) Pulse Ox O2 Delivery O2 Flow Rate FiO2 05/19/24 15:33 68 18 98 Room Air* 0 21 05/19/24 15:30 97.9 68 18 209/80 (123) 98 97.9 05/19/24 13:34 67 20 97 Room Air 05/19/24 13:34 98.7 67 20 164/73 (103) 97 98.7 05/19/24 11:45 98.2 60 16 167/55 (92) 98 Lab Test 05/19/24 13:48 05/19/24 11:59 Range/Units Urine Color Light-yellow Yellow Urine Clarity Clear Clear Urine pH 6.5 5.0-9.0 Urine Specific [place] 1.012 1.001-1.035 Urine Protein Negative Negative Urine Ketones Negative Negative Urine Blood Negative Negative /uL Urine Nitrite Negative Negative Urine Bilirubin Negative Negative Urine Urobilinogen Normal Negative mg/dL Urine Leukocyte Esterase 2+ Negative /uL Urine RBC 2 0 - 4 /hpf Urine WBC 8 0 - 5 /hpf Urine Squamous Epithelial Cells Few <5 /hpf Urine Bacteria None seen None Seen /hpf Urine Mucus Few None Seen Urine Glucose Normal Normal mg/dL White Blood Count 7.9 4.4-10.8 10^3/uL Red Blood Count 3.90 L 4.0-5.20 10^6/uL Hemoglobin 12.8 12.2-16.2 g/dL Hematocrit 36.9 36.0-46.0 % Mean Corpuscular Volume 94.8 80.0-100.0 fL Mean Corpuscular Hemoglobin 32.8 H 28.0-32.0 pg Mean Corpuscular Hemoglobin Concent 34.6 32.0-36.0 g/dL Red Cell Distribution Width 13.8 11.8-14.3 % Platelet Count 227 140-450 10^3/uL Mean Platelet Volume 8.1 6.9-10.8 fL Neutrophils (%) (Auto) 69.6 37.0-80.0 % Lymphocytes (%) (Auto) 20.0 10.0-50.0 % Monocytes (%) (Auto) 6.5 0.0-12.0 % Eosinophils (%) (Auto) 3.3 0.0-7.0 % Basophils (%) (Auto) 0.6 0.0-2.0 % Neutrophils # (Auto) 5.5 1.6-8.6 10 ^3/uL Lymphocytes # (Auto) 1.6 0.4-5.4 10 ^3/uL Monocytes # (Auto) 0.5 0-1.3 10 ^3/uL Eosinophils # (Auto) 0.3 0-0.8 10 ^3/uL Basophils # (Auto) 0 0-0.2 10 ^3/uL Nucleated Red Blood Cells 0.0 % Sodium Level 141 136-145 mmol/L Potassium Level 4.1 3.5-5.1 mmol/L Chloride Level 108 H 98-107 mmol/L Carbon Dioxide Level 25 20-31 mmol/L Anion Gap 8 5-15 Blood Urea Nitrogen 12 9-23 mg/dL Creatinine 0.90 0.550-1.02 mg/dL Glomerular Filtration Rate Calc 65 >90 mL/min BUN/Creatinine Ratio 13.3 10.0-20.0 Serum Glucose 100 74-106 mg/dL Calcium Level 9.9 8.7-10.4 mg/dL PATIENT: OLGA SYKEST: [id number]: [id number] : 1945 LOC: ER ROOM / BED: / AGE / SEX: 78 / F ADM STATUS: REG ER SERVICE 1145 ORDERING PHYSICIAN: TEMITOPE LAI NP PROCEDURE(s): FAC2C - MAXILLOFACIAL WITHOUT REASON: fall ORDER NUMBER(s): [id number], ACCESSION NUMBER(s): [id number] Procedure: CT MAXILLOFACIAL WITHOUT Study Date and Requested Time: 05/19/2024 12:19 PM History:fall Comparison: None Dose: CTDI: 64.04 mGy DLP: 2382.85 mGycm Technique: Multiplanar images obtained through the face without intravenous co ntrast. Findings: Streak artifact from dental amalgam limits evaluation of the adjacent structures. Mild frontal scalp soft tissue edema / hematoma with overlying skin irregularity and associated foci of air. No underlying fracture is visualized . Polypoid mucoperiosteal thickening of the left maxillary sinus and left posterior ethmoid air cell. The remainder of the paranasal sinuses and mastoids are clear. No evidence of acute traumatic fractures. Sclerotic focus of the anterior C7 vertebral body which may represent a bone island with a blastic lesion not excluded. Moderate to severe degenerative changes of the cervical spine. Lenses are not well-visualized. Question bilateral lens replacement. Otherwise, Orbits and globes grossly unremarkable. There is minimal leftward deviation of the nasal septum with left-sided nasal spurring. Nasal cavity and visualized nasopharynx and oropharynx grossly unremarkable with no evidence of focal lesion. The thyroid gland is unremarkable. Biapical atelectasis/ scarring. Impression: No evidence of acute traumatic fractures. Mild right frontal scalp soft tissue edema / hematoma with associated foci of air and overlying wound. ATED BY: RHONDA JOINER DO DICTATED DATE/TIME: 05/19/24 1307 SIGNED BY: RHONDA JOINER DO SIGNED DATE/TIME: 05/19/24 1307 CC: PATIENT: JEWELL SYKES ACCT: [id number] UNIT: [id number] : 1945 LOC: ER ROOM / BED: / AGE / SEX: 78 / F ADM STATUS: REG ER SERVICE 1145 ORDERING PHYSICIAN: TEMITOPE LAI NP PROCEDURE(s): HWOCT - HEAD WITHOUT CONTRAST REASON: fall ORDER NUMBER(s): [id number], ACCESSION NUMBER(s): [id number] EXAM: CT HEAD WITHOUT CONTRAST HISTORY: fall COMPARISON: None TECHNIQUE: [Technique] Axial images were obtained and reformatted in coronal and sagittal planes. All CT scans at this medical facility are performed using dose modulation techniques as appropriate to a performed exam including the following: Automated exposure control was utilized; adjustment of the MA and/or KV according to patient size; and use of iterative reconstruction technique. CT Dose: CTDI volume is [CTDIvol] mGy. Dose-length product is [DLP] mGy*cm FINDINGS: There is scalp soft tissue swelling along the anterior frontal calvarium. The calvarium appears intact. There is no evidence of acute intracranial hemorrhage, mass, mass effect midline shift. There is no hydrocephalus or extra-axial fluid collection. Aviles-white matter differentiation is maintained.. There is mucosal thickening with retention cysts in the visualized left maxillary sinus. Remaining paranasal sinuses in the mastoid air cells are clear. IMPRESSION: 1. No acute intracranial process. 2. Anterior frontal scalp soft tissue swelling. HS:Y ATED BY: ALEX RODRIGUEZ MD DICTATED DATE/TIME: 05/19/241253 SIGNED BY: ALEX RODRIGUEZ MD SIGNED DATE/TIME: 05/19/241253 CC: X-Ray, Labs, Meds, VS Comment No evidence of acute traumatic fractures. Mild right frontal scalp soft tissue edema / hematoma with associated foci of air and overlying wound. UA positive for UTI Based on age, concern for subdural hematoma, we will consult with the hospitalist for admission Time of 1ST Reevaluation: 14:28 Reevaluation 1ST: Improved Patient Education/Counseling: Diagnosis, Treatment Family Education/Counseling: Diagnosis, Treatment Departure 1 Departure Time of Disposition: 14:55 Impression: Primary Impression: Fall Qualified Codes: W19.XXXA - Unspecified fall, initial encounter Additional Impressions: Traumatic hematoma of forehead Qualified Codes: S00.83XA - Contusion of other part of head, initial encounter UTI (urinary tract infection) Qualified Codes: N30.00 - Acute cystitis without hematuria Forgetfulness Disposition: ADMITTED INPATIENT Condition: Stable Critical Care Note Critical Care Time?: No Stability Stability form required: No Heart Score Heart Score: Heart Score Response (Comments) Value History N/A 0 EKG N/A 0 Age N/A 0 Risk Factors N/A 0 Troponin N/A 0 Total 0 TEMITOPE LAI NP May 19, 2024 14:28
[2024-05-19 15:33] VITALS: PULSE 68; RESP 18; O2SAT 98
[2024-05-19] MEDS ORDERED: DONE1TAB88 PO (16:13)
[2024-05-19] MEDS ORDERED: QUET1TAB11 PO (16:13)
[2024-05-19] MEDS ORDERED: CALC1CHW (16:13)
[2024-05-19] MEDS ORDERED: LOSA-534 PO (16:13)
[2024-05-19] MEDS ORDERED: LEVO100T8 PO (16:13)
[2024-05-19] MEDS ORDERED: QUET50TA27 PO (16:13)
[2024-05-19] MEDS ORDERED: AMLO1TAB22 PO (16:13)
[2024-05-19] MEDS ORDERED: CLON0.1T PO (16:13)
--- NOTE | 2024-05-19 16:28 | DVHHP2 ---
Admitting Diagnosis: Mechanical fall History of Present Illness This is a pleasant 78-year-old with hx of carotid endarterectomy, Hypertension, HTN, depression who was brought in by granddaughter for a mechanical fall that occurred today. Also reports she is seeing neurology at this time for behavioral changes. Her memory declined quickly, Not alert to year or place. Had recent MRI of brain and results were normal. Pending Pet scan ordered by neurology. Gets agitated at her facility. Granddaughter reports she hit her head on concrete after she stepped over a parking curb exiting the car. Fall was witnessed. Granddaughter denies LOC. Denies fever, chills, night sweats Denies persistent nausea Denies vomiting Denies thunderclap headache Denies photophobia, phonophobia Denies taking any blood thinner medication Denies vision/hearing changes Denies focal loss of strength/sensation or changes in speech PAST MEDICAL HISTORY: Dementia, High Lipids, HTN Surgical History: Denies all surgeries SOIL SCIENTIST History: No Pertinent SOIL SCIENTIST History Family History Family History: Reviewed,noncontributory to illness Social History Smoker: Non-Smoker Alcohol: Denies ETOH Use Drugs: Denies Drug Use Lives In: Home Allergies: Coded Allergies: NO KNOWN ALLERGIES (Unverified , 03/09/23) Home Meds Active Scripts Albuterol Sulfate (VENTOLIN MDI) 90 Mcg Ih, 90 MCG IN Q6HP PRN, #1 INH Prov:SIGIFREDO HAMMONDS MD 03/17/23 Pantoprazole Sodium Sesquihydr (Pantoprazole Sodium) 40 Mg Tab, 40 MG PO DAILY, #30 TAB Prov:ERASMO NAVARRO MD 03/11/23 Aspirin (Aspirin Low Dose) 81 Mg Tab, 81 MG PO DAILY, #30 TAB Prov:ERASMO NAVARRO MD 03/11/23 Reported Medications Calcium Carbonate-Vitamin D W/ (600+D3 Plus Minerals 600-800 mg-Unit) 1 Chw Chw 05/19/24 Amlodipine Besylate (Amlodipine Besylate) 5 Mg Tab, 1 TAB PO DAILY 05/19/24 Quetiapine Fumerate (QUETIAPINE FUMARATE) 25 Mg Tab, 1 TAB PO 05/19/24 Quetiapine Fumerate (QUETIAPINE FUMARATE) 50 Mg Tab, 1 TAB PO 05/19/24 Donepezil Hydrochloride (DONEPEZIL HCL) 10 Mg Tab, 1 TAB PO 05/19/24 Levothyroxine Sodium (Levothyroxine Sodium) 100 Mcg Tab, 1 TAB PO DAILY 05/19/24 Clonidine Hydrochloride (Clonidine Hcl) 0.1 Mg Tab, 1 TAB PO DAILY 05/19/24 Losartan Potassium (Losartan Potassium) 50 Mg Tab, 1 TAB PO DAILY 05/19/24 Atorvastatin Calcium (ATORVASTATIN CALCIUM) 80 Mg Tab, 1 TAB PO DAILY 03/09/23 Discontinued Reported Medications Losartan Potassium (Losartan Potassium) 25 Mg Tab, 1 TAB PO DAILY 03/17/23 Amlodipine Besylate (Amlodipine Besylate) 10 Mg Tab, 1 TAB PO DAILY 03/09/23 Levothyroxine Sodium (Levothyroxine Sodium) 150 Mcg Tab, 1 TAB PO DAILY 03/09/23 Vital Signs Vital Signs Date Time Temp Pulse Resp B/P (MAP) Pulse Ox O2 Delivery O2 Flow Rate FiO2 05/19/24 15:33 68 18 98 Room Air* 0 21 05/19/24 15:30 97.9 209/80 (123) 97.9 Physical Exam Generally-70 years old woman, well nourished well developed. No apparent distress HEENT-frontal anterior head of the lesion, edema toes and tender to palpate Heart-regular regular rate and rhythm Lungs clear to auscultate bilaterally Abdomen soft nontender nondistended Musculoskeletal-no edema cyanosis Neuro-AO x3, no focal deficits Results Labs Test 05/19/24 13:48 05/19/24 11:59 Range/Units Urine Color Light-yellow Yellow Urine Clarity Clear Clear Urine pH 6.5 5.0-9.0 Urine Specific [place] 1.012 1.001-1.035 Urine Protein Negative Negative Urine Ketones Negative Negative Urine Blood Negative Negative /uL Urine Nitrite Negative Negative Urine Bilirubin Negative Negative Urine Urobilinogen Normal Negative mg/dL Urine Leukocyte Esterase 2+ Negative /uL Urine RBC 2 0 - 4 /hpf Urine WBC 8 0 - 5 /hpf Urine Squamous Epithelial Cells Few <5 /hpf Urine Bacteria None seen None Seen /hpf Urine Mucus Few None Seen Urine Glucose Normal Normal mg/dL White Blood Count 7.9 4.4-10.8 10^3/uL Red Blood Count 3.90 L 4.0-5.20 10^6/uL Hemoglobin 12.8 12.2-16.2 g/dL Hematocrit 36.9 36.0-46.0 % Mean Corpuscular Volume 94.8 80.0-100.0 fL Mean Corpuscular Hemoglobin 32.8 H 28.0-32.0 pg Mean Corpuscular Hemoglobin Concent 34.6 32.0-36.0 g/dL Red Cell Distribution Width 13.8 11.8-14.3 % Platelet Count 227 140-450 10^3/uL Mean Platelet Volume 8.1 6.9-10.8 fL Neutrophils (%) (Auto) 69.6 37.0-80.0 % Lymphocytes (%) (Auto) 20.0 10.0-50.0 % Monocytes (%) (Auto) 6.5 0.0-12.0 % Eosinophils (%) (Auto) 3.3 0.0-7.0 % Basophils (%) (Auto) 0.6 0.0-2.0 % Neutrophils # (Auto) 5.5 1.6-8.6 10 ^3/uL Lymphocytes # (Auto) 1.6 0.4-5.4 10 ^3/uL Monocytes # (Auto) 0.5 0-1.3 10 ^3/uL Eosinophils # (Auto) 0.3 0-0.8 10 ^3/uL Basophils # (Auto) 0 0-0.2 10 ^3/uL Nucleated Red Blood Cells 0.0 % Sodium Level 141 136-145 mmol/L Potassium Level 4.1 3.5-5.1 mmol/L Chloride Level 108 H 98-107 mmol/L Carbon Dioxide Level 25 20-31 mmol/L Anion Gap 8 5-15 Blood Urea Nitrogen 12 9-23 mg/dL Creatinine 0.90 0.550-1.02 mg/dL Glomerular Filtration Rate Calc 65 >90 mL/min BUN/Creatinine Ratio 13.3 10.0-20.0 Serum Glucose 100 74-106 mg/dL Calcium Level 9.9 8.7-10.4 mg/dL Primary Diagnosis Mechanical fall Frontal forehead lesion Plan CT head shows anterior soft tissue edema. No visible subdural hematoma Forehead covered in bandage. Mild tender with palpation Repeat CT head 1:[address] two evaluate for subdural hematoma versus worsening anterior soft tissue edema Neuro check per floor protocol Per daughter, does not recall medication. Family bring medications keeps nurses for medication reconciliation Full code Regular diet CT for DVT prophylaxis No GI prophylaxis needed Plan discussed with: Patient, Daughter Date of Service: May 19, 2024 Billing Provider: NANO SAMAYOA MD Common Visit Codes: 91068-[id number] INP/OBS CARE (MOD) NANO SAMAYOA MD May 19, 2024 16:28
[2024-05-19] MEDS ORDERED: DOCUSATE SOD 100 MG CAP PO PRN (16:30)
[2024-05-19] MEDS ORDERED: ACETAMINOPHEN 325 MG TAB PO PRN (16:30)
[2024-05-19] MEDS ORDERED: HYDROcodone-ACET 5/325MG TAB PO PRN (16:30)
[2024-05-19] MEDS ORDERED: HYDROmorphone HCL 2 MG/ML VL/or syr IV PRN (16:30)
[2024-05-19] MEDS ORDERED: ONDANSETRON HCL 4 MG/2 ML VIAL IV PRN (16:30)
[2024-05-19] MEDS ORDERED: hydrALAZINE HCL 20 MG/ML VL IV PRN (16:45)
[2024-05-19] MEDS: PANTOPRAZOLE 40 MG TAB PO SCH (16:53)
[2024-05-19] MEDS: LOSARTAN POTASSIUM 50 MG TAB PO SCH (16:54)
[2024-05-19] MEDS: cloNIDine HCL 0.1 MG TAB PO SCH (16:54)
[2024-05-19] MEDS: amLODIPine BESYLATE 5 MG TAB PO SCH (16:55)
[2024-05-19] MEDS: ASPirin-EC 81 mg tab PO SCH (17:15)
[2024-05-19] MEDS: LEVOTHYROXINE SODIUM 100 MCG TAB PO SCH (17:15)
[2024-05-19] MEDS: DONEPEZIL HYDROCHLORIDE 5 MG TAB PO SCH (17:15)
[2024-05-19] MEDS: QUEtiapine FUMARATE 25 MG TAB PO SCH (17:15)
[2024-05-19 18:17] VITALS: PULSE 64; RESP 16; O2SAT 95
[2024-05-19] MEDS: SODIUM CHLOR 0.9% PF (SALINE LOCK) 10ML VIAL/SYR IV SCH (21:04)
[2024-05-19] MEDS: ATORVASTATIN 20 MG TAB PO SCH (21:04)
[2024-05-20] VITALS (8 sets, daily range): BP systolic 118–137; BP diastolic 42–84; PULSE 55–62; RESP 15–20; TEMP 98–98.6; O2SAT 93–97
[2024-05-20 07:37] LABS: Basophils # (auto) 0 10 ^3/uL (0-0.2); Basophils % (auto) 0.8 % (0.0-2.0); Eosinophils # (auto) 0.3 10 ^3/uL (0-0.8); Eosinophils % (auto) 5.2 % (0.0-7.0); Hematocrit 32.2 % (36.0-46.0); Lymphocytes # (auto) 1.2 10 ^3/uL (0.4-5.4); Lymphocytes % (auto) 20.4 % (10.0-50.0); Mean Corpuscular Hemoglobin 32.2 pg (28.0-32.0); Mean Corpuscular Hgb Conc. 34.3 g/dL (32.0-36.0); Monocytes # (auto) 0.5 10 ^3/uL (0-1.3); Monocytes % (auto) 8.1 % (0.0-12.0); Neutrophils # (auto) 3.8 10 ^3/uL (1.6-8.6); Neutrophils % (auto) 65.5 % (37.0-80.0); Platelet Count (auto) 199 10^3/uL (140-450); Red Blood Cells 3.43 10^6/uL (4.0-5.20); White Blood Cell 5.7 10^3/uL (4.4-10.8)
[2024-05-20 07:44] LABS: Alanine Aminotransferase 35 U/L (7-40); Alkaline Phosphatase 205 U/L (46-116); Anion Gap 8 (5-15); BUN/Creatinine Ratio 16.3 (10.0-20.0); Blood Urea Nitrogen 14 mg/dL (9-23); Calcium 9.3 mg/dL (8.7-10.4); Carbon Dioxide 25 mmol/L (20-31); Chloride 109 mmol/L (98-107); Glucose 95 mg/dL (74-106); Potassium 3.7 mmol/L (3.5-5.1); Sodium 142 mmol/L (136-145)
[2024-05-20 07:45] LABS: Albumin 3.8 g/dL (3.2-4.8); Aspartate Aminotransferase 24 U/L (13-40); Bilirubin, Total 0.9 mg/dL (0.2-1.0); Total Protein 6.2 g/dL (5.7-8.2)
[2024-05-20] MEDS ORDERED: PATIENTS OWN MEDICATION (Atorvastatin Calcium 1 TAB) PO SCH (10:00)
--- NOTE | 2024-05-20 14:27 | DVH ---
EXAM: CT HEAD WITHOUT CONTRAST INDICATION: repeat ct head to eval for worsening edema vs possible SDH TECHNIQUE: CT of the head without intravenous contrast. Radiation Dose Information: CT Dose: CTDI volume is 53.6 mGy. Dose-length product is 949.15 mGy*cm The dose indicators for CT are the volume Computed Tomography (CT) Dose Index (CTDIvol) and the Dose Length Product (DLP), and are measured in units of mGy and mGy-cm, respectively. These indicators are not patient dose, but values generated from the CT scanner acquisition factors. The report includes radiation exposure data for exposures received during this examination. COMPARISON: CT HEAD WITHOUT CONTRAST on DOS: 05/19/24 FINDINGS: There is no evidence of acute intracranial hemorrhage, extra-axial collection, mass effect, midline s hift, herniation or hydrocephalus. The ventricles, sulci and cisterns are age appropriate. The henning-white differentiation is intact. Patchy periventricular and subcortical white matter hypoattenuation is nonspecific but may be related to small vessel ischemic disease. The visualized paranasal sinuses and mastoid air cells are clear. The surrounding soft tissues and osseous structures are unremarkable. IMPRESSION: No acute intracranial abnormality.
--- NOTE | 2024-05-20 15:27 | DVHPN2 ---
Progress Note Date Seen: May 20, 2024 Medical Necessity Reason Pt with a Central, PICC or Fol: No Subjective Patient reports: No new complaints Review of Systems: HEENT:Normal, CVS:Normal, RESPIRATORY:Normal, GI:Normal, :Normal, MSK:Normal, NEURO:Normal Objective vital signs Vital Sign Date Time Temp Pulse Resp B/P (MAP) Pulse Ox O2 Delivery O2 Flow Rate FiO2 05/20/24 13:00 98.6 62 20 130/49 (76) 96 98.6 05/20/24 08:00 Room Air* 0 21 Total Intake and Output 05/19/24 05/19/24 05/20/24 15:00 23:00 07:00 Intake Total 0 ml Balance 0 ml medications Current Medications Medications Dose Ordered Sig/Maryjane Route Start Time Stop Time Status Last Admin Dose Admin Sodium Chloride 10 ml Q8HR IV 05/19/24 22:00 05/20/24 14:00 10 ML Docusate Sodium 100 mg BIDPRN PRN PO 05/19/24 16:30 Acetaminophen 650 mg Q6HP PRN PO 05/19/24 16:30 Acetaminophen/ Hydrocodone Bitart 1 tab Q4HP PRN PO 05/19/24 16:30 Hydromorphone HCl 0.5 mg Q4HP PRN IV 05/19/24 16:30 Ondansetron HCl 4 mg Q4HP PRN IV 05/19/24 16:30 Amlodipine Besylate 5 mg DAILY PO 05/19/24 16:45 05/20/24 10:34 5 MG Aspirin 81 mg DAILY PO 05/19/24 16:45 05/20/24 10:33 81 MG Clonidine HCl 0.1 mg DAILY PO 05/19/24 16:45 05/20/24 10:36 0.1 MG Levothyroxine Sodium 100 mcg DAILY PO 05/19/24 16:45 05/20/24 10:33 100 MCG Losartan Potassium 50 mg DAILY PO 05/19/24 16:45 05/20/24 10:45 50 MG Pantoprazole Sodium 40 mg DAILY PO 05/19/24 16:45 05/20/24 10:32 40 MG Quetiapine Fumarate 25 mg DAILY PO 05/19/24 16:45 05/20/24 10:33 25 MG Patient Own Medication 1 tab DAILY PO 10/31/24 10:00 UNV Donepezil HCl 10 mg DAILY PO 05/19/24 16:45 05/20/24 10:32 10 MG Hydralazine HCl 10 mg Q4H PRN IV 05/19/24 16:45 Atorvastatin Calcium 80 mg HS PO 05/19/24 22:00 05/19/24 21:04 80 MG Examination: GENERAL:Normal, HEENT:Normal, NECK:Normal, LUNGS:Normal, CVS:Normal, ABDOMEN:Normal, MSK:Normal, MSK:Abnormal (forehead abrasian), SKIN:Normal, NEURO:Normal, :Normal laboratory and microbiology Laboratory Tests 05/20/24 06:39 Test 05/20/24 06:39 Range/Units Serum Glucose 95 74-106 mg/dL Problem List/Assessment/Plan Problem List/Assessment/Plan #1 s/p fall with forehead abrasion #2 htn #3 dementia #4 uti: iv rocephin #5 hypothyroidism advance care planning- full code- time spent 19 mins Plan discussed with: Patient My Orders My Orders Orders - NGUYỄN GARCIA MD Procedure Category Date Status Time Cleanse Wound With Ns BRONWYN 05/20/24 In Process 10:50 Date of Service: May 20, 2024 Billing Provider: NGUYỄN GARCIA MD Common Visit Codes: [id number] INP/OBS CARE(HIGH) Secondary Visit Codes: [id number]-YTCCUHOS CARE PLAN 30 MINUTES NGUYỄN GARCIA MD May 20, 2024 15:27
--- NOTE | 2024-05-20 16:41 | DVH ---
CHEST RADIOGRAPH Indication:htn Technique: Single frontal view of the chest was obtained Comparison: XY CHEST PORTABLE on DOS: 04/02/23, XY CHEST PORTABLE on DOS: 03/30/23, XY CHEST PORTABLE o n DOS: 03/16/23 FINDINGS: Lines and Tubes: None Lungs: No focal consolidation. Pleura: No effusion. No pneumothorax. Cardiomediastinal contours: Appears to have increased in size from 04/09/2023. Bones: No acute osseous abnormality. IMPRESSION: 1. Increased cardiac size from 04/09/2023.
[2024-05-20] MEDS: cefTRIAXone 1GM/50ML D5W 50 ML IV ONE (17:13)
[2024-05-21 01:00] VITALS: BP 144/59; PULSE 54; RESP 16; O2SAT 98
[2024-05-21 04:58] VITALS: BP 141/67; PULSE 58; RESP 16; O2SAT 98
[2024-05-21 09:00] VITALS: BP 90/50; PULSE 61; RESP 16; TEMP 97.9; O2SAT 98
[2024-05-21] MEDS: cefTRIAXone 1GM/50ML D5W 50 ML IV SCH (09:44)
[2024-05-21 13:00] VITALS: BP 149/56; PULSE 55; RESP 17; TEMP 97.9; O2SAT 98
--- NOTE | 2024-05-21 14:15 | DVHDS2 ---
Discharge Summary Date of Admission May 19, 2024 at 16:28 Date of Discharge: May 21, 2024 Admitting Diagnosis Mechanical fall Labs/Diagnostic Data: Laboratory Results Test 05/21/24 06:36 05/20/24 06:39 05/19/24 13:48 Vitamin B12 Level 419 pg/mL (211-911) Thyroid Stimulating Hormone (TSH) 9.38 uIU/mL (0.55-4.78) White Blood Count 5.7 10^3/uL (4.4-10.8) Red Blood Count 3.43 10^6/uL (4.0-5.20) Hemoglobin 11.0 g/dL (12.2-16.2) Hematocrit 32.2 % (36.0-46.0) Mean Corpuscular Volume 94.0 fL (80.0-100.0) Mean Corpuscular Hemoglobin 32.2 pg (28.0-32.0) Mean Corpuscular Hemoglobin Concent 34.3 g/dL (32.0-36.0) Red Cell Distribution Width 14.0 % (11.8-14.3) Platelet Count 199 10^3/uL (140-450) Mean Platelet Volume 8.1 fL (6.9-10.8) Neutrophils (%) (Auto) 65.5 % (37.0-80.0) Lymphocytes (%) (Auto) 20.4 % (10.0-50.0) Monocytes (%) (Auto) 8.1 % (0.0-12.0) Eosinophils (%) (Auto) 5.2 % (0.0-7.0) Basophils (%) (Auto) 0.8 % (0.0-2.0) Neutrophils # (Auto) 3.8 10 ^3/uL (1.6-8.6) Lymphocytes # (Auto) 1.2 10 ^3/uL (0.4-5.4) Monocytes # (Auto) 0.5 10 ^3/uL (0-1.3) Eosinophils # (Auto) 0.3 10 ^3/uL (0-0.8) Basophils # (Auto) 0 10 ^3/uL (0-0.2) Nucleated Red Blood Cells 0.0 % Sodium Level 142 mmol/L (136-145) Potassium Level 3.7 mmol/L (3.5-5.1) Chloride Level 109 mmol/L (98-107) Carbon Dioxide Level 25 mmol/L (20-31) Anion Gap 8 (5-15) Blood Urea Nitrogen 14 mg/dL (9-23) Creatinine 0.86 mg/dL (0.550-1.02) Glomerular Filtration Rate Calc 69 mL/min (>90) BUN/Creatinine Ratio 16.3 (10.0-20.0) Serum Glucose 95 mg/dL (74-106) Calcium Level 9.3 mg/dL (8.7-10.4) Total Bilirubin 0.9 mg/dL (0.2-1.0) Aspartate Amino Transferase (AST) 24 U/L (13-40) Alanine Aminotransferase (ALT) 35 U/L (7-40) Alkaline Phosphatase 205 U/L (46-116) Total Protein 6.2 g/dL (5.7-8.2) Albumin 3.8 g/dL (3.2-4.8) Urine Color Light-yellow (Yellow) Urine Clarity Clear (Clear) Urine pH 6.5 (5.0-9.0) Urine Specific [place] 1.012 (1.001-1.035) Urine Protein Negative (Negative) Urine Ketones Negative (Negative) Urine Blood Negative /uL (Negative) Urine Nitrite Negative (Negative) Urine Bilirubin Negative (Negative) Urine Urobilinogen Normal mg/dL (Negative) Urine Leukocyte Esterase 2+ /uL (Negative) Urine RBC 2 /hpf (0 - 4) Urine WBC 8 /hpf (0 - 5) Urine Squamous Epithelial Cells Few /hpf (<5) Urine Bacteria None seen /hpf (None Seen) Urine Mucus Few (None Seen) Urine Glucose Normal mg/dL (Normal) Other Laboratory Tests 05/20/24 06:39 Brief Hx & Hospital Course: History of Present Illness This is a pleasant 78-year-old with hx of carotid endarterectomy, Hypertension, HTN, depression who was brought in by granddaughter for a mechanical fall that occurred today. Also reports she is seeing neurology at this time for behavioral changes. Her memory declined quickly, Not alert to year or place. Had recent MRI of brain and results were normal. Pending Pet scan ordered by neurology. Gets agitated at her facility. Granddaughter reports she hit her head on concrete after she stepped over a parking curb exiting the car. Fall was witnessed. Granddaughter denies LOC. Denies fever, chills, night sweats Denies persistent nausea Denies vomiting Denies thunderclap headache Denies photophobia, phonophobia Denies taking any blood thinner medication Denies vision/hearing changes Denies focal loss of strength/sensation or changes in speech Course of hospitalization: CT scan of the head was performed. Patient was restarted on her home medications. The patient was found to be ambulating without difficulty in the hospital. No neurological or motor deficits appreciated. Patient will be discharged back to assisted living facility. Physical exam General: Alert and Oriented x3. No acute distress. Well-nourished. Eyes: EOMI. Anicteric. HENT: Moist mucous membranes. Ecchymosis noted to forehead, nasal bridge Lungs: Clear to auscultation bilaterally. No accessory muscle use. Cardiovascular: Regular rate and rhythm. No murmur. No JVD. Abdomen: Soft, non-tender and non-distended. No palpable masses. Extremities: No edema. Non-tender. Skin: No rashes or lesions. Warm. Neurologic: No focal neurological deficits. CN II-XII grossly intact, but not individually tested. Psychiatric: Cooperative. Appropriate mood and affect. Condition at Discharge: Fair Final Diagnosis/Problems List Mechanical fall with head trauma Secondary Diagnosis: #1 s/p fall with forehead abrasion #2 htn #3 dementia #4 uti: iv rocephin #5 hypothyroidism Discharge Disposition: Home Discharge Instruct/Medications Diet: Regular Activity: No Restrictions, As Tolerated Follow Up/Referral: Follow up with PCP in 1-2 weeks Medications: Continue all previous home medication 36 Discharge Statement: "Patient was advised to return to the ER or call 911 if any headaches, dizziness, shortness of breath, chest pain, abdominal pain, bleeding, fevers, or worsening of medical condition. Patient was counseled about treatment plan, medications, possible side effects, patientverbalized understanding. All questions were answered to the best of my ability. This discharge took greater then 30 minutes in planning, reviewing documentation, counseling the patient, and discussing with other team members." ASSESSMENT ASSESSMENT Assessment Mechanical fall with head trauma Date of Service: May 21, 2024 Billing Provider: HO PERKINS NP Common Visit Codes: 67706-ICN/OBS DISCH DAY >30min HO PERKINS CUTTER IN May 21, 2024 14:15
[2024-05-21 17:00] VITALS: BP 160/59; PULSE 57; RESP 17; TEMP 97.6; O2SAT 97
== END 2024-05-21 18:30 | disposition home or self-care (01) | DRG 605 ==
LOC: ER 11:26 → OVERFLOW 16:28 → WEST WING 18:08
PROVIDERS: ADMIT Internal Medicine; ATTEND Nurse Practitioner Acute Care
DX: S00.83XA Contusion of other part of head, initial encounter (principal); N39.0 Urinary tract infection, site not specified; S00.81XA Abrasion of other part of head, initial encounter; I10 Essential (primary) hypertension; F03.90 Unspecified dementia, unspecified severity, without behavioral disturbance, psychotic disturbance, mood disturbance, and anxiety; F32.A Depression, unspecified; E03.9 Hypothyroidism, unspecified; W18.39XA Other fall on same level, initial encounter; Y93.89 Activity, other specified; Y92.89 Other specified places as the place of occurrence of the external cause; Y99.8 Other external cause status
CPT/HCPCS: 36415; 70450; 70486; 71045; 80048; 80053; 81001; 82607; 84443; 85025; 97110; 97116; 97163; G0378